=== PATIENT | male | born 1970 | race Two or more races ===

== ENCOUNTER 2020-06-13 22:50 | Emergency (ER) | payer OTHER ==
[~2020-06-13] VITALS: Ht 170.2 cm; Wt 90.9 kg
[2020-06-13] MEDS ORDERED: FLUORESCEIN SODIUM 1 MG STRIP ONE (23:40)
[2020-06-13] MEDS ORDERED: ACETAMINOPHEN 500 MG TABLET PO ONE (23:45)
[2020-06-13] MEDS ORDERED: PERTUSS(ACELL),DIPH,TET VAC/PF 0.5 ML VIAL IM ONE (23:45)
[2020-06-13] MEDS ORDERED: PROPARACAINE HCL 0.5% 15 ML OPHTHALMIC SOLUTION OS ONE (23:45)
[2020-06-14 00:07] VITALS: BP 145/83
== END 2020-06-14 00:23 | disposition home or self-care (01) ==
LOC: EMS 22:52
DX: S00.33XA Contusion of nose, initial encounter (principal); S00.83XA Contusion of other part of head, initial encounter; F17.210 Nicotine dependence, cigarettes, uncomplicated; Y04.2XXA Assault by strike against or bumped into by another person, initial encounter; Y93.89 Activity, other specified; Y92.89 Other specified places as the place of occurrence of the external cause; Y99.8 Other external cause status
CPT/HCPCS: 90471; 90715